=== PATIENT | female | born 1955 | race American Indian/Alaskan Native ===

== ENCOUNTER 2020-03-06 08:57 | Outpatient (CLI) | payer MEDICAID ==
--- NOTE | 2020-04-22 15:22 | Mammography Report ---
BILATERAL DIGITAL DIAGNOSTIC MAMMOGRAM WITH CAD CONVENTIONAL, 03/06/2020 BILATERAL LIMITED BREAST ULTRASOUND CLINICAL INFORMATION / INDICATION: Patient presents for evaluation of an area of focal pain and palp able concern in the right breast. TECHNIQUE: Digital bilateral mammographic imaging was performed. Spot compression views were obtained . Limited ultrasound was performed. This examination was interpreted with the benefit of Computer-Aid ed Detection (CAD) analysis. COMPARISON: None available FINDINGS: Breast Density: There are scattered areas of fibroglandular density. MAMMOGRAPHIC FINDINGS: There is no mammographic abnormality underlying the marker denoting site of pa lpable concern in the lower inner quadrant of the right breast. There is, however, a 10 mm nodular de nsity in the 2:00 position of the right breast, posterior depth. Additional scattered benign intramam madeline lymph nodes are seen in both breasts. There appears to be focal duct ectasia in the subareolar l eft breast. Targeted ultrasound was performed for further evaluation of these findings. ULTRASOUND FINDINGS: Targeted ultrasound evaluation was performed of the area of interest. Right breast: Targeted ultrasound of the area of palpable concern in the right breast 4:00 position l ocated 5 cm from the nipple reveals normal fibroglandular tissue without suspicious cystic or solid l esion. Corresponding with the nodular density seen mammographically, there is a benign intramammary l ymph node in the 2:00 position located 10 cm from the nipple measuring up to 1.2 x 0.7 cm. Left breast: Targeted ultrasound of the subareolar left breast reveals benign duct ectasia. No intrad uctal mass or suspicious sonographic abnormality identified. IMPRESSION: 1. No mammographic or sonographic abnormality at the site of focal pain and palpable concern in the r ight breast, therefore clinical correlation is recommended. 2. Several benign intramammary lymph nodes are seen in both breasts, and benign duct ectasia in the l eft breast. Follow up recommendation: Routine yearly BI-RADS Category 2: Benign. A "normal" or negative report should not discourage follow up or biopsy of a clinically significant f inding. A written summary of these findings will be mailed to the patient. The patient will be entered into a mammography reporting system which will generate a reminder letter for the patient's next appointmen t at the appropriate interval. According to the [employer], yearly mammograms are recommended starting at age 40 and continuing as long as a woman is in good health. Breast MRI is recommended for women with an emi roximately 20-25% or greater lifetime risk of breast cancer, including women with a strong family his tory of breast or ovarian cancer and women who have been treated for Hodgkin's disease. Signer Name: Irena Harper MD Signed: 04/22/2020 3:17 PM Workstation Name: [id number]
== END 2020-03-06 08:58 | disposition home or self-care (01) ==
LOC: MAMMO 08:57 → EDBD 09:30
PROVIDERS: ATTEND Internal Medicine
DX: N63.12 Unspecified lump in the right breast, upper inner quadrant (principal)
CPT/HCPCS: 77066

== ENCOUNTER 2021-01-14 10:43 | Emergency (ER) | payer MEDICARE ==
[2021-01-14] MEDS ORDERED: FLUORESCEIN 1 MG STRIP OP ONE (12:40)
[2021-01-14] MEDS ORDERED: TETRACAINE 0.5% OPHTH SOLN 4ML OU PRN (12:40)
--- NOTE | 2021-01-14 13:20 | Emergency Department Report ---
ED General Adult HPI - General Chief complaint: Eye Problems Stated complaint: EYE INJURY Time Seen by Provider: 01/14/21 12:38 Source: patient Mode of arrival: Ambulatory Limitations: No Limitations - History of Present Illness Initial comments: 65-year-old -[place] female patient presents with complaints of possible contact stuck in the right this morning. Patient states she accidentally fell asleep in her contacts last night and upon waking was unable to get her contact out of her right eye. She states she did multiple rinses with saline, however now her eyes very irritated and she believes to contact the stuck in the outer portion. She denies any vision changes or photophobia. She states the pain is mild and feels like a foreign body sensation. NKDA per patient. She reports she is otherwise feeling well Severity scale (0 -10): 8 - Related Data Home Medications Medication Instructions Recorded Confirmed Last Taken AtorvaSTATin 01/14/21 Unknown Trelegy Ellipta 100-62.5-25 01/14/21 Unknown amLODIPine 01/14/21 Unknown metFORMIN 01/14/21 Unknown Previous Rx's Medication Instructions Recorded Last Taken Type Ofloxacin 0.3% [Ocuflox 0.3% opth] 2 drops OP Q4H 7 Days #1 bottle 01/14/21 Unknown Rx Allergies Allergy/AdvReac Type Severity Reaction Status Date / Time No Known Allergies Allergy Verified 01/14/21 11:16 ED Review of Systems ROS: Stated complaint: EYE INJURY Other details as noted in HPI Constitutional: denies: fever, malaise Eyes: eye pain. denies: eye discharge, vision change Skin: denies: change in color Neurological: denies: headache ED Past Medical Hx - Social History Smoking Status: Never Smoker Substance Use Type: None - Medications Home Medications: Home Medications Medication Instructions Recorded Confirmed Last Taken Type AtorvaSTATin 01/14/21 Unknown History Ofloxacin 0.3% [Ocuflox 0.3% opth] 2 drops OP Q4H 7 Days #1 bottle 01/14/21 Unknown Rx Trelegy Ellipta 100-62.5-25 01/14/21 Unknown History amLODIPine 01/14/21 Unknown History metFORMIN 01/14/21 Unknown History ED Physical Exam - General Limitations: No Limitations General appearance: alert, in no apparent distress - Head Head exam: Present: atraumatic, normocephalic - Eye Eye exam: Present: conjunctival injection (Mild irritation noted to the right conjunctiva and sclera; no obvious foreign bodies or purulent discharge noted), other (Fluorescein stain and Camejo lamp exam performed of right eye and shows small corneal abrasion; eyelids everted and swept x2 and no foreign bodies noted) - Respiratory Respiratory exam: Absent: respiratory distress - Cardiovascular Cardiovascular Exam: Present: regular rate - Neurological Exam Neurological exam: Present: alert, oriented X3, normal gait - Psychiatric Psychiatric exam: Present: normal affect, normal mood ED Course Vital Signs 01/14/21 11:57 Temperature 97.9 F Pulse Rate 67 Respiratory 14 Rate Blood Pressure 123/75 Blood Pressure 123/75 [Right] O2 Sat by Pulse 99 Oximetry ED Medical Decision Making - Medical Decision Making 65-year-old -[place] female patient presents with complaints of possible contact stuck in the right this morning. Patient states she accidentally fell asleep in her contacts last night and upon waking was unable to get her contact out of her right eye. She states she did multiple rinses with saline, however now her eyes very irritated and she believes to contact the stuck in the outer portion. She denies any vision changes or photophobia. She states the pain is mild and feels like a foreign body sensation. NKDA per patient. She reports she is otherwise feeling well No foreign bodies noted on exam of the right eye. Small corneal abrasion noted. Will treat with ofloxacin. Recommend patient follows up with PCP in 3 to 5 days. She is is well-appearing and stable for discharge home. Discussed signs and symptoms that should prompt immediate return to the ED with patient who verbalizes understanding. Critical care attestation.: If time is entered above; I have spent that time in minutes in the direct care of this critically ill patient, excluding procedure time. ED Disposition Clinical Impression: Right corneal abrasion Disposition: HOME / SELF CARE / HOMELESS Is pt being admited?: No Condition: Stable Instructions: Corneal Abrasion, [id number] Prescriptions: Ofloxacin 0.3% [Ocuflox 0.3% opth] 2 drops OP Q4H 7 Days #1 bottle Referrals: NAY MAGAÑA MD [Primary Care Provider] - 3-5 Days Forms: Work/School Release Form(ED)
[2021-01-14 13:51] VITALS: BP 122/74
== END 2021-01-14 13:50 | disposition home or self-care (01) ==
LOC: ED 10:43
DX: S05.01XA Injury of conjunctiva and corneal abrasion without foreign body, right eye, initial encounter (principal); X58.XXXA Exposure to other specified factors, initial encounter; Y93.89 Activity, other specified; Y92.89 Other specified places as the place of occurrence of the external cause; Y99.8 Other external cause status
CPT/HCPCS: 99283